=== PATIENT | female | born 1990 | race Hispanic/Latino ===

== ENCOUNTER 2017-10-14 21:48 | Emergency (ER) | payer SELFPAY ==
[2017-10-14] MEDS ORDERED: ACETAMINOPHEN EXTRA STRENGTH 500 MG TABLET ONE (22:50)
[2017-10-14] MEDS ORDERED: ONDANSETRON HCL 4 MG/2 ML VIAL ONE (22:50)
[2017-10-14] MEDS ORDERED: SODIUM CHLORIDE 0.9% 1000ML 1,000 ML IV ONE (22:50)
[2017-10-14 22:52] LABS: BASOPHILS % (AUTO) 0.2 % (0.0-5.0); EOSINOPHILS % (AUTO) 0.1 % (0.0-8.0); HEMATOCRIT 34.9 % (36-48); LYMPHOCYTES % (AUTO) 6.6 % (21.0-51.0); MEAN CORPUSCULAR HEMOGLOBIN 29.8 pg (27.0-33.0); MEAN CORPUSCULAR HGB CONC 34.1 g/dL (32.0-36.0); MEAN CORPUSCULAR VOLUME 87.3 fL (79-99); NEUTROPHILS % (AUTO) 85.1 % (40.0-77.0); PLATELET COUNT (AUTO) 211 K/uL (130-400); RED CELL DISTRIBUTION WIDTH 12.9 % (11.0-15.5); WHITE BLOOD COUNT (AUTO) 9.8 K/uL (4.8-10.8)
[2017-10-14 22:52] LABS: APPEARANCE,URINE CLEAR (CLEAR); BILIRUBIN,URINE NEGATIVE (NEGATIVE); COLOR,URINE YELLOW (YELLOW); GLUCOSE, URINE (UA) NEGATIVE (NEGATIVE); KETONES,URINE NEGATIVE (NEGATIVE); LEUKOCYTE ESTERASE ,URINE TRACE (NEGATIVE); NITRATE,URINE NEGATIVE (NEGATIVE); OCCULT BLOOD,URINE LARGE (NEGATIVE); PH,URINE 6.5 (5.0-8.0); PROTEIN,URINE NEGATIVE (NEGATIVE); UROBILINOGEN,URINE 0.2 mg/dL (0.2-1.0)
[2017-10-14 22:57] LABS: HCG,QUAL RESULT NEGATIVE (NEGATIVE)
[2017-10-14 23:01] LABS: RAPID GROUP A STREP NEGATIVE (NEGATIVE)
[2017-10-14 23:02] LABS: BACTERIA,URINE Few /HPF (None Seen); RBC,URINE None Seen /HPF (0-1)
[2017-10-14 23:04] LABS: CREATININE 0.9 mg/dL (0.5-1.5); POTASSIUM 3.4 mmol/L (3.5-5.1)
[2017-10-14 23:08] LABS: ALBUMIN 3.6 g/dL (3.5-5.0); BILIRUBIN,TOTAL 0.4 mg/dL (0.2-1.0); TOTAL PROTEIN, SERUM 8.2 g/dL (6.0-8.3)
== END 2017-10-15 00:50 | disposition home or self-care (01) ==
LOC: EDH 21:48
DX: R11.2 Nausea with vomiting, unspecified (principal); R50.81 Fever presenting with conditions classified elsewhere; R10.9 Unspecified abdominal pain
CPT/HCPCS: 36415; 74176; 80053; 81001; 81025; 85025; 87804 ×2; 87880; 96361; 96374; 99285; J2405; J7030

== ENCOUNTER 2019-08-27 18:58 | Emergency (ER) | payer OTHER ==
[2019-08-27] MEDS ORDERED: IPRATROPIUM/ALBUTEROL SULFATE 3 ML SOLUTION IH ONE (19:19)
[2019-08-27 19:54] LABS: RAPID GROUP A STREP NEGATIVE (NEGATIVE)
== END 2019-08-27 20:25 | disposition home or self-care (01) ==
LOC: EDH 18:58
DX: B34.9 Viral infection, unspecified (principal); J11.1 Influenza due to unidentified influenza virus with other respiratory manifestations; F12.10 Cannabis abuse, uncomplicated; Z72.0 Tobacco use
CPT/HCPCS: 81025; 87804; 87880; 94640

== ENCOUNTER 2019-09-08 01:45 | Emergency (ER) | payer OTHER ==
[2019-09-08] MEDS ORDERED: DEXAMETHASONE SOD PHOSPHATE 10MG/ML 1ML VIAL ONE (02:02)
[2019-09-08] MEDS ORDERED: CEFTRIAXONE SODIUM 1 GM ONE (02:02)
[2019-09-08] MEDS ORDERED: LIDOCAINE HCL-MPF 1% 2ML VIAL ONE (02:02)
[2019-09-08] MEDS ORDERED: IPRATROPIUM/ALBUTEROL SULFATE 3 ML SOLUTION IH ONE (02:09)
[2019-09-08 03:10] LABS: APPEARANCE,URINE CLEAR (CLEAR); BILIRUBIN,URINE NEGATIVE (NEGATIVE); COLOR,URINE YELLOW (YELLOW); GLUCOSE, URINE (UA) NEGATIVE (NEGATIVE); KETONES,URINE NEGATIVE (NEGATIVE); LEUKOCYTE ESTERASE ,URINE TRACE (NEGATIVE); NITRATE,URINE NEGATIVE (NEGATIVE); OCCULT BLOOD,URINE SMALL (NEGATIVE); PROTEIN,URINE NEGATIVE (NEGATIVE); UROBILINOGEN,URINE 0.2 mg/dL (0.2-1.0)
[2019-09-08 03:20] LABS: RBC,URINE 0-1 /HPF (0-1)
[2019-09-08 03:21] LABS: BACTERIA,URINE Rare /HPF (None Seen); HCG,QUAL RESULT NEGATIVE (NEGATIVE); SQUAMOUS EPITHELIAL CELL,UR Rare /HPF (0-2)
== END 2019-09-08 04:26 | disposition home or self-care (01) ==
LOC: EDH 01:45
DX: J20.9 Acute bronchitis, unspecified (principal)
CPT/HCPCS: 71046; 81001; 81025; 87804 ×2; 94640; 96372 ×2; 99285; J0696; J1100; J3490

== ENCOUNTER → 2021-01-28 | Emergency (ER) | payer BC, OTHER ==
[~2021-01-28] MED LIST: CEFTRIAXONE SODIUM 1 GM ONE; SODIUM CHLORIDE 0.9% 500ML 1,000 ML IV ONE
[2021-01-28 01:45] LABS: APPEARANCE,URINE Cloudy (CLEAR); BILIRUBIN,URINE Negative (NEGATIVE); COLOR,URINE Yellow (YELLOW); GLUCOSE, URINE (UA) TRACE mg/dL (NEGATIVE); KETONES,URINE Trace mg/dL (NEGATIVE); LEUKOCYTE ESTERASE ,URINE Moderate (NEGATIVE); NITRATE,URINE Negative (NEGATIVE); OCCULT BLOOD,URINE Nonhemolyzed Trace (NEGATIVE); PROTEIN,URINE Negative (NEGATIVE)
[2021-01-28 01:52] LABS: BACTERIA,URINE Moderate /HPF (None Seen); RBC,URINE 0-1 /HPF (0-1); SQUAMOUS EPITHELIAL CELL,UR Moderate /HPF (0-2)
[2021-01-28 02:00] LABS: BASOPHILS % (AUTO) 0.2 % (0.0-5.0); EOSINOPHILS % (AUTO) 0.7 % (0.0-8.0); HEMATOCRIT 36.2 % (36-48); MEAN CORPUSCULAR HEMOGLOBIN 29.2 pg (27.0-33.0); MEAN CORPUSCULAR VOLUME 91.2 fL (79-99); MONOCYTES % (AUTO) 6.9 % (3.0-13.0); NEUTROPHILS % (AUTO) 70.7 % (40.0-77.0); PLATELET COUNT (AUTO) 273 K/uL (130-400); RED BLOOD CELL COUNT(AUTO) 3.97 MIL/uL (4.00-5.50); RED CELL DISTRIBUTION WIDTH 13.2 % (11.0-15.5); WHITE BLOOD COUNT (AUTO) 13.1 K/uL (4.8-10.8)
[2021-01-28 02:12] LABS: INR 0.99 (0.85-1.15); PROTHROMBIN TIME 10.8 SEC (9.6-11.6)
[2021-01-28 02:14] LABS: PARTIAL THROMBOPLASTIN TIME 28.5 SEC (26.3-35.5)
[2021-01-28 02:17] LABS: ALBUMIN 3.6 g/dL (3.5-5.0); BILIRUBIN,TOTAL 0.3 mg/dL (0.2-1.0); POTASSIUM 3.7 mmol/L (3.5-5.1); TOTAL PROTEIN, SERUM 8.4 g/dL (6.0-8.3)
[2021-01-28 02:55] LABS: CREATININE 0.9 mg/dL (0.5-1.5)
== END ==
LOC: EDH 00:11
DX: O20.0 Threatened abortion (principal); O23.41 Unspecified infection of urinary tract in pregnancy, first trimester; O99.281 Endocrine, nutritional and metabolic diseases complicating pregnancy, first trimester; E86.9 Volume depletion, unspecified; Z3A.01 Less than 8 weeks gestation of pregnancy
CPT/HCPCS: 36415; 76801; 80053; 81001; 84702; 85025; 85610; 85730; 86850; 86900; 86901; 87077; 87088; 87186; 96361; 96365; 96366; 99284; J0696; J7040

== ENCOUNTER 2022-04-13 19:26 | Emergency (ER) | payer BC ==
[~2022-04-13] VITALS: Ht 154.9 cm; Wt 122.5 kg
[2022-04-13 19:48] LABS: BASOPHILS % (AUTO) 0.2 % (0.0-5.0); EOSINOPHILS % (AUTO) 1.4 % (0.0-8.0); HEMATOCRIT 38.5 % (36-48); LYMPHOCYTES % (AUTO) 22.4 % (21.0-51.0); MEAN CORPUSCULAR HEMOGLOBIN 27.8 pg (27.0-33.0); MEAN CORPUSCULAR HGB CONC 32.5 g/dL (32.0-36.0); MEAN CORPUSCULAR VOLUME 85.7 fL (79-99); MONOCYTES % (AUTO) 9.2 % (3.0-13.0); NEUTROPHILS % (AUTO) 66.3 % (40.0-77.0); PLATELET COUNT (AUTO) 120 K/uL (130-400); RED BLOOD CELL COUNT(AUTO) 4.49 MIL/uL (4.00-5.50); RED CELL DISTRIBUTION WIDTH 13.4 % (11.0-15.5); WHITE BLOOD COUNT (AUTO) 10.3 K/uL (4.8-10.8)
[2022-04-13 20:00] LABS: APPEARANCE,URINE CLOUDY (CLEAR); BILIRUBIN,URINE NEGATIVE (NEGATIVE); COLOR,URINE YELLOW (YELLOW); GLUCOSE, URINE (UA) NEGATIVE (NEGATIVE); KETONES,URINE NEGATIVE (NEGATIVE); LEUKOCYTE ESTERASE ,URINE LARGE (NEGATIVE); NITRATE,URINE NEGATIVE (NEGATIVE); OCCULT BLOOD,URINE MODERATE (NEGATIVE); PROTEIN,URINE NEGATIVE (NEGATIVE); UROBILINOGEN,URINE 0.2 mg/dL (0.2-1.0)
[2022-04-13] MEDS ORDERED: LIDOCAINE HCL 2% VISCOUS 15 ML UDCUP PO ONE (20:00)
[2022-04-13] MEDS ORDERED: ONDANSETRON 4MG INJ IVP ONE (20:00)
[2022-04-13] MEDS ORDERED: 0.9%NACL 1000ML 1,000 ML IV ONE (20:00)
[2022-04-13] MEDS ORDERED: FAMOTIDINE 20MG VIAL IV ONE (20:00)
[2022-04-13] MEDS ORDERED: MAG/ALUM/SIMETH 30 ML UDCUP PO ONE (20:00)
[2022-04-13 20:01] LABS: CREATININE 0.5 mg/dL (0.5-1.5); POTASSIUM 5.1 mmol/L (3.5-5.1)
[2022-04-13 20:03] LABS: HCG,QUALITATIVE URINE NEGATIVE (NEGATIVE)
[2022-04-13 20:08] LABS: ALBUMIN 3.9 g/dL (3.5-5.0); TOTAL PROTEIN, SERUM 9.1 g/dL (6.0-8.3)
[2022-04-13 20:11] LABS: BACTERIA,URINE Few /HPF (None Seen); MUCUS,URINE Few LPF (None Seen); SQUAMOUS EPITHELIAL CELL,UR Few /HPF (0-2)
[2022-04-13] MEDS ORDERED: CEFTRIAXONE 1G VIAL IVP ONE (20:30)
[2022-04-13] MEDS ORDERED: MORPHINE 2 MG SYG IVP ONE (21:00)
[2022-04-13] MEDS ORDERED: KETOROLAC 15MG/ML VIAL (15MG/ML) IV ONE (21:00)
[2022-04-13 22:16] VITALS: BP 123/72
[2022-04-13] MEDS ORDERED: ONDA4TAB10 PO (22:36)
[2022-04-13] MEDS ORDERED: NAPR500T6 PO (22:36)
== END 2022-04-13 22:45 | disposition home or self-care (01) ==
LOC: EDH 19:26
DX: K80.20 Calculus of gallbladder without cholecystitis without obstruction (principal); Z79.1 Long term (current) use of non-steroidal anti-inflammatories (NSAID); Z79.899 Other long term (current) drug therapy
CPT/HCPCS: 99284; 96374; 96375; 76705; 71045; 96361; 84484; 80053; 83690; 85025; 87088; 81001; 81025; 36415; 93005; J3490; J0696; J2405; J1885

== ENCOUNTER 2022-04-23 15:29 | Emergency (ER) | payer BC ==
[~2022-04-23] VITALS: Ht 154.9 cm; Wt 123.8 kg
[~2022-04-23 15:29] MED LIST changes: -CEFTRIAXONE SODIUM 1 GM ONE; +NAPR500T6 PO; +ONDA4TAB10 PO; -SODIUM CHLORIDE 0.9% 500ML 1,000 ML IV ONE
[2022-04-23 15:56] LABS: BASOPHILS % (AUTO) 0.3 % (0.0-5.0); EOSINOPHILS % (AUTO) 1.2 % (0.0-8.0); HEMATOCRIT 38.5 % (36-48); LYMPHOCYTES % (AUTO) 31.7 % (21.0-51.0); MEAN CORPUSCULAR HEMOGLOBIN 27.9 pg (27.0-33.0); MEAN CORPUSCULAR HGB CONC 32.7 g/dL (32.0-36.0); MEAN CORPUSCULAR VOLUME 85.2 fL (79-99); MONOCYTES % (AUTO) 7.2 % (3.0-13.0); NEUTROPHILS % (AUTO) 59.3 % (40.0-77.0); PLATELET COUNT (AUTO) 249 K/uL (130-400); RED BLOOD CELL COUNT(AUTO) 4.52 MIL/uL (4.00-5.50); RED CELL DISTRIBUTION WIDTH 13.2 % (11.0-15.5); WHITE BLOOD COUNT (AUTO) 5.8 K/uL (4.8-10.8)
[2022-04-23] MEDS: MORPHINE 2 MG SYG IVP ONE (15:57)
[2022-04-23] MEDS: LACTATED RINGERS 1000ML 1,000 ML IV ONE (15:57)
[2022-04-23] MEDS: KETOROLAC 15MG/ML VIAL (15MG/ML) IV ONE (15:57)
[2022-04-23] MEDS: ONDANSETRON 4MG INJ IVP ONE (15:57)
[2022-04-23 16:02] LABS: APPEARANCE,URINE SL CLOUDY (CLEAR); BILIRUBIN,URINE NEGATIVE (NEGATIVE); COLOR,URINE YELLOW (YELLOW); GLUCOSE, URINE (UA) NEGATIVE (NEGATIVE); KETONES,URINE NEGATIVE (NEGATIVE); LEUKOCYTE ESTERASE ,URINE MODERATE (NEGATIVE); NITRATE,URINE NEGATIVE (NEGATIVE); OCCULT BLOOD,URINE SMALL (NEGATIVE); PROTEIN,URINE NEGATIVE (NEGATIVE); UROBILINOGEN,URINE 0.2 mg/dL (0.2-1.0)
[2022-04-23 16:05] LABS: HCG,QUALITATIVE URINE NEGATIVE (NEGATIVE)
[2022-04-23 16:07] LABS: CREATININE 0.6 mg/dL (0.5-1.5); POTASSIUM 3.8 mmol/L (3.5-5.1)
[2022-04-23 16:12] LABS: ALBUMIN 3.8 g/dL (3.5-5.0); TOTAL PROTEIN, SERUM 8.4 g/dL (6.0-8.3)
[2022-04-23 16:13] LABS: BACTERIA,URINE Few /HPF (None Seen); MUCUS,URINE Few LPF (None Seen); SQUAMOUS EPITHELIAL CELL,UR Moderate /HPF (0-2)
[2022-04-23] MEDS ORDERED: OXYC-38 PO (16:37)
[2022-04-23] MEDS ORDERED: ONDA4TAB10 PO (16:37)
[2022-04-23 16:43] VITALS: BP 133/79
== END 2022-04-23 16:48 | disposition home or self-care (01) ==
LOC: EDH 15:29
DX: U07.1 COVID-19 (principal); K80.70 Calculus of gallbladder and bile duct without cholecystitis without obstruction; Z79.1 Long term (current) use of non-steroidal anti-inflammatories (NSAID); Z79.899 Other long term (current) drug therapy
CPT/HCPCS: 99284; 96374; 76705; 96375; 87635; 96361; 80053; 83690; 85025; 87088; 81001; 81025; 36415; C9803; J7120; J2405; J1885

== ENCOUNTER 2022-07-29 20:49 | Emergency (ER) | payer BC, OTHER ==
[~2022-07-29] VITALS: Ht 154.9 cm; Wt 122.5 kg
[~2022-07-29 20:49] MED LIST changes: +OXYC-38 PO
[2022-07-29] MEDS ORDERED: KETOROLAC 60 MG VIAL (30MG/ML) IM ONE (21:30)
[2022-07-29] MEDS ORDERED: NAPR-1180 PO (21:54)
[2022-07-29 22:05] VITALS: BP 138/83
== END 2022-07-29 22:13 | disposition home or self-care (01) ==
LOC: EDH 20:49
DX: S63.501A Unspecified sprain of right wrist, initial encounter (principal); Z79.899 Other long term (current) drug therapy; V49.49XA Driver injured in collision with other motor vehicles in traffic accident, initial encounter; Y93.89 Activity, other specified; Y92.413 State road as the place of occurrence of the external cause; Y99.8 Other external cause status
CPT/HCPCS: 99284; 73090; 73130; 96372; J1885

== ENCOUNTER 2023-01-24 14:06 | Emergency (ER) | payer BC, OTHER ==
[~2023-01-24] VITALS: Ht 154.9 cm; Wt 135.2 kg
[~2023-01-24 14:06] MED LIST changes: +NAPR-1180 PO
[2023-01-24 16:00] LABS: BASOPHILS % (AUTO) 0.3 % (0.0-5.0); HEMATOCRIT 36.3 % (36-48); LYMPHOCYTES % (AUTO) 21.3 % (21.0-51.0); MEAN CORPUSCULAR HEMOGLOBIN 29.1 pg (27.0-33.0); MEAN CORPUSCULAR HGB CONC 32.5 g/dL (32.0-36.0); MEAN CORPUSCULAR VOLUME 89.4 fL (79-99); NEUTROPHILS % (AUTO) 69.9 % (40.0-77.0); PLATELET COUNT (AUTO) 268 K/uL (130-400); RED BLOOD CELL COUNT(AUTO) 4.06 MIL/uL (4.00-5.50); RED CELL DISTRIBUTION WIDTH 13.2 % (11.0-15.5); WHITE BLOOD COUNT (AUTO) 10.4 K/uL (4.8-10.8)
[2023-01-24 16:11] LABS: CREATININE 0.7 mg/dL (0.5-1.5); POTASSIUM 4.1 mmol/L (3.5-5.1)
[2023-01-24 16:21] LABS: ALBUMIN 3.5 g/dL (3.5-5.0); TOTAL PROTEIN, SERUM 8.1 g/dL (6.0-8.3)
[2023-01-24 16:23] LABS: APPEARANCE,URINE CLOUDY (CLEAR); BILIRUBIN,URINE NEGATIVE (NEGATIVE); COLOR,URINE LIGHT-YELLOW (YELLOW); GLUCOSE, URINE (UA) NEGATIVE (NEGATIVE); KETONES,URINE NEGATIVE (NEGATIVE); LEUKOCYTE ESTERASE ,URINE 500 Leu/uL (NEGATIVE); NITRATE,URINE NEGATIVE (NEGATIVE); OCCULT BLOOD,URINE SMALL (NEGATIVE); PROTEIN,URINE NEGATIVE (NEGATIVE); UROBILINOGEN,URINE 0.2 mg/dL (0.2-1.0)
[2023-01-24 16:40] VITALS: BP 126/74
[2023-01-24 16:46] LABS: RBC,URINE 0-1 /HPF (0-1)
[2023-01-24 16:47] LABS: BACTERIA,URINE Many /HPF (None Seen)
[2023-01-24] MEDS ORDERED: CEPH500B PO (16:51)
[2023-01-24] MEDS ORDERED: CEFTRIAXONE 1G VIAL IVPB ONE (17:00)
[2023-01-24 17:09] LABS: HCG,QUALITATIVE URINE NEGATIVE (NEGATIVE)
== END 2023-01-24 17:07 | disposition home or self-care (01) ==
LOC: EDH 14:06
DX: N39.0 Urinary tract infection, site not specified (principal); Z86.16 Personal history of COVID-19
CPT/HCPCS: 99284; 96374; 76705; 71045; 84484; 80053; 83690; 85025; 87088; 81001; 81025; 36415; J0696

== ENCOUNTER 2023-07-08 00:11 | Emergency (ER) | payer BC ==
[~2023-07-08] VITALS: Ht 152.4 cm; Wt 108.9 kg
[~2023-07-08 00:11] MED LIST changes: +CEPH500B PO
[2023-07-08 01:14] VITALS: BP 132/78; PULSE 78; RESP 18; O2SAT 98
[2023-07-08] MEDS ORDERED: LIDOCAINE HCL 2% VISCOUS 15 ML UDCUP ONE (01:15)
[2023-07-08] MEDS ORDERED: LIDOCAINE HCL 2% VISCOUS 15 ML UDCUP PO ONE (01:30)
[2023-07-08] MEDS ORDERED: ACETAMINOPHEN WITH CODEINE 1 TAB TAB PO ONE (01:30)
== END 2023-07-08 01:43 | disposition home or self-care (01) ==
LOC: EDH 00:11
DX: H60.591 Other noninfective acute otitis externa, right ear (principal); H92.01 Otalgia, right ear; Z79.899 Other long term (current) drug therapy